=== PATIENT | male | born 2000 | race Caucasian/White ===

== ENCOUNTER 2023-01-10 21:31 | Emergency (ER) | payer OTHER | END 2023-01-10 22:18 | disposition home or self-care (01) | LOC: MADERS 21:31 → EEVIPCON 21:31 → MADERS 22:18 | DX: Z69.11 Encounter for mental health services for victim of spousal or partner abuse (principal); E03.9 Hypothyroidism, unspecified; E66.9 Obesity, unspecified; F84.0 Autistic disorder | CPT/HCPCS: 99284 ==